=== PATIENT | male | born 1995 | race African-American/Black ===

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

== ENCOUNTER 2017-01-20 15:50 | Emergency (ER) | payer OTHER ==
[~2017-01-20] VITALS: Ht 190.5 cm; Wt 77.1 kg
[~2017-01-20 15:50] MED LIST changes: +CEPH-507 PO
--- OUTSIDE RECORDS SUMMARY | 2017-01-20 15:54 | XMS REPORT | Continuity of Care Document ---
Author Author [facility] Address Unknown Phone Unavailable Allergies Active [...] visit for: well child visit 01/10/2013 PIERRE SHELL MOLDING ROLLER BLAST OPERATOR, JOSE ALFREDO Karishma 314.01 ADHD COMBINED 01/10/2013 [...] Procedures Code [place] [address] PSYCH DIAGNOSTIC EVALUATION 01/14/2013 38655 PSYCH DIAGNOSTIC EVALUATION 02/14/2013 14303 PSYCHO TESTING 1 HR W COMP 02/18/2013 11987 PSYTX PT&/FAMILY 30 MINUTES 03/09/2013 Results Encounters ACCT No. Visit Date/Time Discharge Status Pt. Type Provider Facility Loc./Unit Complaint [id number] 06/20/2014 14:42:00 06/20/2014 23: 59:59 CLS Outpatient TAQUERIA MACK MD [id number] 01/19/2014 09:00:00 01/19/2014 23: 59:59 CLS Outpatient TAQUERIA MACK MD [id number] 03/31/2013 10:43:00 03/31/2013 23: 59:59 CLS Outpatient TAQUERIA MACK MD [id number] 03/11/2013 13:49:00 03/11/2013 23: 59:59 CLS Outpatient TAQUERIA MACK MD [id number] 03/09/2013 08:02:00 03/09/2013 23: 59:59 CLS Outpatient NAYELY MAJOR PHD [id number] 02/15/2013 15:58:00 02/15/2013 23: 59:59 CLS Outpatient NAYELY MAJOR PHD [id number] 02/14/2013 08:05:00 02/14/2013 23: 59:59 CLS Outpatient NAYELY MAJOR PHD [id number] 01/10/2013 13:42:00 01/10/2013 23: 59:59 CLS Outpatient JOSE ALFREDO JAY LCPC
[2017-01-20] MEDS ORDERED: RABIES VACCINE HUMAN DIPL CELL 1 ML/2.5 UNITS SYR IM ONE (16:15)
[2017-01-20] MEDS ORDERED: CLIN300C11 PO (16:15)
[2017-01-20] MEDS ORDERED: RABIES IMMUNE GLOBULIN 150 UNIT/ML 10 ML (HYPERRAB) IM ONE (16:15)
--- NOTE | 2017-01-20 16:15 | ED General ---
General Stated Complaint: DOG BITE Source of Information: Patient, EMS Exam Limitations: No Limitations History of Present Illness Time Seen by Provider: 16:11 Initial Comments To ER per EMS with reports of a dog bite. Patient was walking down the street here in town when a dog bit his left butt cheek. He also has an abrasion to the dorsal aspect of the left elbow. He states that his own tetanus vaccination is up-to-date. He did call the police and has the superintendent police's card with him. However animal control is unable to locate this animal to determine the rabies vaccination status of the dog. Timing/Duration: 1/2 Hour Associated Systoms: Denies Symptoms Allergies and Home Medications Allergies Coded Allergies: Penicillins (Verified Allergy, Unknown, 05/30/15) Home Medications Azithromycin 250 Mg Tablet, 250 MG PO DAILY, #4 Prescribed by: DONNA OLIVA on 05/30/15 2100 Cephalexin 500 Mg Capsule, 500 MG PO TID, #21 Prescribed by: DONNA OLIVA on 12/11/16 1209 Sulfamethoxazole/Trimethoprim 1 Each Tablet, 1 EACH PO Q12H, #20 Ref 0 Prescribed by: TYLER BROOKS on 08/07/16 2109 Constitutional: see HPI EENTM: see HPI Respiratory: no symptoms reported Cardiovascular: no symptoms reported Genitourinary: no symptoms reported Musculoskeletal: no symptoms reported Skin: see HPI Psychiatric/Neurological: No Symptoms Reported Hematologic/Lymphatic: No Symptoms Reported Past Vliibbr-Wzomiw-Geckuj Hx Patient Social History Recent Hopitalizations: No Seasonal Allergies Seasonal Allergies: No Surgeries History of Surgeries: Yes (wrist) Surgeries: Orthopedic Respiratory History of Respiratory Disorde: No Cardiovascular History of Cardiac Disorders: No Neurological History of Neurological Disord: No Reproductive System Hx Reproductive Disorders: No Gastrointestinal History of Gastrointestinal Di: No Musculoskeletal History of Musculoskeletal Dis: No Endocrine History of Endocrine Disorders: No Cancer History of Cancer: No Psychosocial History of Psychiatric Problem: No Integumentary History of Skin or Integumenta: No Blood Transfusions History of Blood Disorders: No Physical Exam Vital Signs Capillary Refill : General Appearance: No Apparent Distress, WD/WN Eyes: Bilateral Eye Normal Inspection, Bilateral Eye PERRL, Bilateral Eye EOMI HEENT: PERRL/EOMI, TMs Normal Neck: Full Range of Motion, Normal Inspection Respiratory: No Accessory Muscle Use, No Respiratory Distress Cardiovascular: Regular Rate, Rhythm, Normal Peripheral Pulses Gastrointestinal: Non Tender, Soft Extremity: Normal Capillary Refill, Normal Inspection Neurologic/Psychiatric: Alert, Oriented x3, No Motor/Sensory Deficits Skin: Normal Color, Warm/Dry, Other (superficial abrasions to the dorsal aspect of the left elbow. He has 3 separate puncture wounds over the issue of the left buttocks. None of these are actively bleeding. These all appear to be rather superficial. They were scrubbed with chlorhexidine.) Laceration Repair : Suture Size: 4-0 Progress/Results/Core Measures Results/Orders My Orders Orders - DONNA OLIVA APRN Rabies Vaccine Human Dipl Cell (Rabavert (01/20/17 16:15) Rabies Immune Globulin/Pf Inj (Hyperrab (01/20/17 16:15) Departure Communication (Admissions) Progress Notes Patient does wish to proceed with rabies vaccination treatment since the dog cannot be located to determine its vaccination status. Impression Impression: Primary Impression: Dog bite of buttock Additional Impression: Abrasion of arm, left Disposition: 01 HOME, SELF-CARE Condition: Stable Departure-Patient Inst. Decision time for Depature: 16:14 Referrals: NO,LOCAL PHYSICIAN (PCP/Family) Primary Care Physician Patient Instructions: Animal Bites Add. Discharge Instructions: 1. Antibiotics as directed 2. Return to the hospital rabies vaccination shots as scheduled 3. Return to ER for any concerns Scripts Clindamycin HCl (Clindamycin HCl) 300 Mg Capsule 300 MG PO TID, #15 CAP Prov: DONNA OLIVA APRN 01/20/17 DONNA OLIVA APRN Jan 20, 2017 16:15
== END 2017-01-20 17:30 | disposition home or self-care (01) ==
LOC: EDUNIT# 15:50 → ER 15:51
DX: S31.823A Puncture wound without foreign body of left buttock, initial encounter (principal); S50.312A Abrasion of left elbow, initial encounter; Z23 Encounter for immunization; W54.0XXA Bitten by dog, initial encounter
CPT/HCPCS: 90376; 90675; 96372

== ENCOUNTER → 2017-01-23 18:40 | Outpatient (RCR) | payer OTHER ==
[~2017-01-23] VITALS: Ht 190.5 cm; Wt 76.2 kg
[2017-01-23 18:40] VITALS: BP 128/68
[~2017-01-23 18:40] MED LIST changes: +CLIN300C11 PO; +RABIES VACCINE HUMAN DIPL CELL 1 ML/2.5 UNITS SYR INJ ONE
== END | disposition home or self-care (01) ==
LOC: 4THo 18:21 → 4TH RCR 18:40 → 4THo 01-24 09:15
PROVIDERS: ATTEND Nurse Practitioner Family
DX: S31.805A Open bite of unspecified buttock, initial encounter (principal); W54.0XXA Bitten by dog, initial encounter; Z23 Encounter for immunization
CPT/HCPCS: 90675

== ENCOUNTER 2018-04-19 04:14 | Emergency (ER) | payer SELFPAY ==
[~2018-04-19] VITALS: Ht 193 cm; Wt 84.8 kg
[~2018-04-19 04:14] MED LIST changes: -RABIES VACCINE HUMAN DIPL CELL 1 ML/2.5 UNITS SYR INJ ONE
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
[2018-04-19] MEDS ORDERED: KETOROLAC 30 MG/ML VIAL IM ONE (04:45)
[2018-04-19] MEDS ORDERED: TETANUS,DIPTH,PERTUSS P/F (BOOSTRIX) 0.5 ML VIAL IM ONE (04:45)
[2018-04-19] MEDS ORDERED: ONDA4TAB11 PO (05:43)
[2018-04-19 06:06] VITALS: BP 122/83
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
== END 2018-04-19 06:06 | disposition home or self-care (01) ==
LOC: EDUNIT# 04:14 → ER 04:17
DX: S00.83XA Contusion of other part of head, initial encounter (principal); R40.2142 Coma scale, eyes open, spontaneous, at arrival to emergency department; R40.2252 Coma scale, best verbal response, oriented, at arrival to emergency department; R40.2362 Coma scale, best motor response, obeys commands, at arrival to emergency department; F17.210 Nicotine dependence, cigarettes, uncomplicated; Z23 Encounter for immunization; Z88.0 Allergy status to penicillin; Y08.89XA Assault by other specified means, initial encounter; Y92.009 Unspecified place in unspecified non-institutional (private) residence as the place of occurrence of the external cause
CPT/HCPCS: 70450; 72125; 90715